=== PATIENT | male | born 1995 | race Caucasian/White ===

== ENCOUNTER → 2018-05-25 | Outpatient (CLI) | payer BC ==
--- NOTE | 2018-05-28 11:32 | USB ---
Reason for exam: clinical finding. History: Family history of breast cancer in maternal grandmother at age 60. Indicated problem(s): palpable abnormality in the right breast. Physical Findings: Nurse Summary: minimal prominent tissue posterior nipples, all soft, movable (nurse ts). US Breast RT Right complete breast ultrasound includes all four quadrants, the retroareolar region and axilla. Finding demonstrates symmetric gynecomastia suggested. Right posterior nipple 1.5 x 0.6cm. Left posterior nipple 1.1 x 0.6cm. These results were verbally communicated with the patient and result sheet given to the patient on 05/25/18. ASSESSMENT: Benign, BI-RAD 2 RECOMMENDATION: Clinical management of the right breast. Manage patient on a clinical basis.
== END | disposition home or self-care (01) ==
LOC: RADUSWWP 15:14
PROVIDERS: ATTEND Surgery
DX: N62 Hypertrophy of breast (principal)